=== PATIENT | female | born 1965 | race Two or more races ===

== ENCOUNTER 2023-09-04 12:26 | Inpatient (IN) | payer SELFPAY ==
[2023-09-04] VITALS (10 sets, daily range): BP systolic 116–152; BP diastolic 66–89; TEMP 97–98.6; O2SAT 98–100
[~2023-09-04] VITALS: Ht 165.1 cm; Wt 42.2 kg
[2023-09-04] MEDS: IV LR 1000 ML 1,000 ML BAG IV ONE ×2 (12:59→14:22)
[2023-09-04 13:00] LABS: BASOPHILS # (AUTO) 0.2 K/uL (0.0-0.2); BASOPHILS % (AUTO) 0.7 % (0.0-2.0); HEMATOCRIT 41 % (33-45); HEMOGLOBIN 12.5 g/dL (11.5-14.8); LYMPHOCYTES # (AUTO) 0.9 K/uL (0.8-4.8); LYMPHOCYTES % (AUTO) 3.7 % (20.0-44.0); MEAN CORPUSCULAR HEMOGLOBIN 29 PG (26.0-33.0); MEAN CORPUSCULAR HGB CONC 31 g/dl (31.0-36.0); MEAN CORPUSCULAR VOLUME 95 fL (82-100); MONOCYTES # (AUTO) 1.5 K/uL (0.1-1.30); MONOCYTES % (AUTO) 6.3 % (2.0-12.0); NEUTROPHILS # (AUTO) 20.8 K/uL (1.8-8.9); NEUTROPHILS % (AUTO) 89.3 % (43.0-81.0); PLATELET COUNT (AUTO) 609 K/uL (150-450); RED BLOOD CELL COUNT(AUTO) 4.32 MIL/uL (4.0-5.2); RED CELL DISTRIBUTION WIDTH 14.6 % (11.5-15.0); WHITE BLOOD COUNT (AUTO) 23.3 K/uL (4.3-11.0)
[2023-09-04 13:12] LABS: MAGNESIUM 2.4 mg/dL (1.8-2.4); PHOSPHORUS 4.3 mg/dL (2.5-4.9)
[2023-09-04 13:20] LABS: LACTIC ACID 2.9 mmol/L (0.4-2.0)
[2023-09-04 13:24] LABS: ALANINE AMINOTRANSFERASE 17 U/L (12-78); ALBUMIN 3.3 g/dL (3.4-5.0); ALKALINE PHOSPHATASE 140 U/L (46-116); ASPARTATE AMINOTRANSFERASE 10 U/L (15-37); BILIRUBIN,DIRECT 0.1 mg/dL (0.0-0.2); BILIRUBIN,TOTAL 0.4 mg/dL (0.2-1.0); CALCIUM, SERUM 9.4 mg/dL (8.5-10.1); CREATININE 1.3 mg/dL (0.6-1.3); SALICYLATE 6.9 mg/dL (2.8-20.0); TOTAL PROTEIN, SERUM 8.5 g/dL (6.4-8.2); UREA NITROGEN, BLOOD 20 mg/dL (7-18)
[2023-09-04 13:31] LABS: ACETAMINOPHEN <10 ug/ml (10-30); ALCOHOL, BLOOD < 3 mg/dL (0-10); GLUCOSE 523 mg/dL (74-106)
[2023-09-04 13:32] LABS: CHLORIDE 104 mmol/L (98-107); POTASSIUM 3.3 mmol/L (3.5-5.1); SODIUM SERUM 142 mmol/L (136-145)
[2023-09-04] MEDS: CEFEPIME 1 GM in IV D5W 50 ML IV ONE (13:33)
[2023-09-04 13:37] LABS: CARBON DIOXIDE 4 mmol/L (21-32)
[2023-09-04 13:45] LABS: INR 1.03 (0.91-1.10); PARTIAL THROMBOPLASTIN TIME 31.3 SEC (24.3-34.3); PROTHROMBIN TIME 10.6 SECS (9.2-11.1)
[2023-09-04 14:01] LABS: APPEARANCE,URINE Clear (CLEAR); BILIRUBIN,URINE Negative (NEGATIVE); BLOOD, URINE Small Ery/uL (NEGATIVE); COLOR,URINE YELLOW (YELLOW); KETONES,URINE >=160 mg/dL (NEGATIVE); LEUKOCYTE ESTERASE ,URINE Negative (NEGATIVE); NITRITE, URINE Negative (NEGATIVE); PH,URINE 5.5 (5.0-8.0); PROTEIN,URINE 100 mg/dl (NEGATIVE); UGLUCOSE 500 MG/DL mg/dL (NEGATIVE); UROBILINOGEN,URINE 0.2 EU/dL (0.2)
[2023-09-04 14:16] LABS: AMPHETAMINE, URINE NEGATIVE (NEGATIVE); BARBITURATE, URINE NEGATIVE (NEGATIVE); BENZODIAZEPINE, URINE NEGATIVE (NEGATIVE); CANNABINOID, URINE NEGATIVE (NEGATIVE); COCCAINE, URINE NEGATIVE (NEGATIVE); OPIATE, URINE NEGATIVE (NEGATIVE); PHENCYCLIDINE SCREEN,URINE NEGATIVE (NEGATIVE)
[2023-09-04] MEDS: VANCOMYCIN 1 GM in IV D5W 250 ML IV ONE (14:23)
[2023-09-04] MEDS: IV NS 0.9% 1,000 ML IV PRN (14:46)
[2023-09-04 15:10] LABS: ADD URINE CULTURE NO; BACTERIA,URINE Few /HPF (None Seen); FINE GRANULAR CASTS,URINE Rare /LPF (None Seen); SQUAMOUS EPITHELIAL CELL,UR Few /HPF (None Seen); WBC,URINE 0-2 /HPF (0-3)
[2023-09-04] MEDS: INSULIN REGULAR, HUMAN 100 UNIT in IV NS 0.9% 99 ML IV PRN ×2 (15:10→16:11)
[2023-09-04] MEDS: POTASSIUM CL. PREMIX PERIPHER. 50 ML IV SCH ×2 (15:38→21:31)
[2023-09-04] MEDS: ENOXAPARIN SODIUM 40 MG/0.4 ML DISP.SYRIN SQ SCH (15:51)
[2023-09-04] MEDS: BLOOD SUGAR DIAGNOSTIC 1 EACH STRIP IN ONE (16:13)
[2023-09-04 16:34] LABS: BAND % (MANUAL) 1 % (0.0-5.0); LYMPHOCYTES % (MANUAL) 3 % (16-48); METAMYELOCYTES % 1 % (0-0); MONOCYTES % (MANUAL) 6 % (0-11.0); NEUTROPHILS % (MANUAL) 89 (42-76); PLATELET ESTIMATE INCREASED
[2023-09-04 16:35] LABS: ANISOCYTOSIS 1+
[2023-09-04] MEDS: ONDANSETRON HCL/PF 4 MG/2 ML VIAL IVP PRN (19:20)
[2023-09-04] MEDS: BLOOD SUGAR DIAGNOSTIC 1 EACH STRIP IN SCH (19:20)
[2023-09-04 20:40] LABS: MAGNESIUM 1.9 mg/dL (1.8-2.4)
[2023-09-04 21:07] LABS: POTASSIUM 2.8 mmol/L (3.5-5.1)
[2023-09-04 21:08] LABS: PHOSPHORUS 0.7 mg/dL (2.5-4.9)
[2023-09-04] MEDS: CEFEPIME 1 GM in IV D5W 50 ML IV SCH (21:16)
[2023-09-04] MEDS: K PHOS NEUTRAL 250 MG TABLET PO ONE (21:32)
[2023-09-05] VITALS (21 sets, daily range): BP systolic 115–161; BP diastolic 67–78; TEMP 98–100.5; O2SAT 98–100
[2023-09-05 01:51] LABS: CALCIUM, SERUM 8.8 mg/dL (8.5-10.1); CREATININE 0.9 mg/dL (0.6-1.3); MAGNESIUM 1.9 mg/dL (1.8-2.4)
[2023-09-05 02:51] LABS: POTASSIUM 2.9 mmol/L (3.5-5.1)
[2023-09-05 02:55] LABS: PHOSPHORUS 0.5 mg/dL (2.5-4.9)
[2023-09-05 05:07] LABS: BASOPHILS # (AUTO) 0.2 K/uL (0.0-0.2); HEMATOCRIT 32 % (33-45); HEMOGLOBIN 10.9 g/dL (11.5-14.8); LYMPHOCYTES # (AUTO) 0.9 K/uL (0.8-4.8); LYMPHOCYTES % (AUTO) 4.3 % (20.0-44.0); MEAN CORPUSCULAR HEMOGLOBIN 30 PG (26.0-33.0); MEAN CORPUSCULAR HGB CONC 34 g/dl (31.0-36.0); MEAN CORPUSCULAR VOLUME 88 fL (82-100); MONOCYTES # (AUTO) 1.7 K/uL (0.1-1.30); NEUTROPHILS # (AUTO) 18.6 K/uL (1.8-8.9); NEUTROPHILS % (AUTO) 86.7 % (43.0-81.0); PLATELET COUNT (AUTO) 488 K/uL (150-450); RED BLOOD CELL COUNT(AUTO) 3.65 MIL/uL (4.0-5.2); WHITE BLOOD COUNT (AUTO) 21.4 K/uL (4.3-11.0)
[2023-09-05 05:20] LABS: CALCIUM, SERUM 8.9 mg/dL (8.5-10.1); CREATININE 0.9 mg/dL (0.6-1.3)
[2023-09-05 05:49] LABS: PHOSPHORUS 0.5 mg/dL (2.5-4.9)
[2023-09-05 07:09] LABS: LYMPHOCYTES % (MANUAL) 4 % (16-48); METAMYELOCYTES % 1 % (0-0); MONOCYTES % (MANUAL) 8 % (0-11.0); NEUTROPHILS % (MANUAL) 87 (42-76); PLATELET ESTIMATE ADEQUATE
[2023-09-05 07:10] LABS: ANISOCYTOSIS 1+
[2023-09-05] MEDS: Potassium Chloride 20 MEQ in IV D5/0.45 NACL 1,000 ML IV SCH (08:06)
[2023-09-05] MEDS: POTASSIUM PHOSPHATE MM 5 MMOL in IV NS 0.9% 100 ML IV SCH (08:30)
[2023-09-05] MEDS ORDERED: DEXTROSE 50%-WATER 50 ML DISP.SYRIN IV PRN (09:00)
[2023-09-05] MEDS: PANTOPRAZOLE 40 MG VIAL IV SCH (09:33)
[2023-09-05] MEDS: INSULIN GLARGINE, 100 UNIT/ML CARTRIDGE SQ SCH (10:36)
[2023-09-05] MEDS: INSULIN REGULAR, HUMAN 100 UNIT/ML 3 ML VIAL SQ PRN (10:49)
[2023-09-05] MEDS: BLOOD SUGAR DIAGNOSTIC 1 EACH STRIP IN SCH (12:24)
[2023-09-05] MEDS: VANCOMYCIN 1 GM in IV D5W 250ml IV SCH (14:32)
[2023-09-05 16:06] LABS: CALCIUM, SERUM 8.5 mg/dL (8.5-10.1); CREATININE 0.7 mg/dL (0.6-1.3); MAGNESIUM 1.9 mg/dL (1.8-2.4)
[2023-09-05 16:15] LABS: POTASSIUM 2.4 mmol/L (3.5-5.1)
[2023-09-05 16:30] LABS: APPEARANCE,URINE SLIGHTLY CLOUDY (CLEAR); BILIRUBIN,URINE NEGATIVE (NEGATIVE); BLOOD, URINE 1+ Ery/uL (NEGATIVE); COLOR,URINE YELLOW (YELLOW); KETONES,URINE 2+ mg/dL (NEGATIVE); LEUKOCYTE ESTERASE ,URINE NEGATIVE (NEGATIVE); NITRITE, URINE NEGATIVE (NEGATIVE); PROTEIN,URINE 1+ mg/dl (NEGATIVE); UGLUCOSE 2+ mg/dL (NEGATIVE); UROBILINOGEN,URINE 0.2 EU/dL (0.2)
[2023-09-05 16:45] LABS: ADD URINE CULTURE YES; BACTERIA,URINE 3+ /HPF (None Seen); WBC,URINE NONE SEEN /HPF (0-3)
[2023-09-05 16:46] LABS: COARSE GRANULAR CASTS,URINE Moderate /LPF (None Seen); SQUAMOUS EPITHELIAL CELL,UR Few /HPF (None Seen); YEAST,URINE Moderate /HPF (None Seen)
[2023-09-05] MEDS: ACETAMINOPHEN 650 MG/SUPP.RECT RC PRN (18:11)
[2023-09-05] MEDS: POTASSIUM PHOSPHATE MM 7.5 MMOL in IV NS 0.9% 100 ML IV SCH (19:42)
[2023-09-06 04:00] VITALS: BP 147/90; TEMP 98.8; O2SAT 99
[2023-09-06 06:57] LABS: BASOPHILS # (AUTO) 0.1 K/uL (0.0-0.2); BASOPHILS % (AUTO) 0.7 % (0.0-2.0); HEMATOCRIT 32 % (33-45); HEMOGLOBIN 11.1 g/dL (11.5-14.8); LYMPHOCYTES # (AUTO) 0.7 K/uL (0.8-4.8); LYMPHOCYTES % (AUTO) 4.2 % (20.0-44.0); MEAN CORPUSCULAR HEMOGLOBIN 30 PG (26.0-33.0); MEAN CORPUSCULAR HGB CONC 35 g/dl (31.0-36.0); MEAN CORPUSCULAR VOLUME 85 fL (82-100); MONOCYTES # (AUTO) 1.2 K/uL (0.1-1.30); MONOCYTES % (AUTO) 6.6 % (2.0-12.0); NEUTROPHILS # (AUTO) 15.6 K/uL (1.8-8.9); NEUTROPHILS % (AUTO) 88.5 % (43.0-81.0); PLATELET COUNT (AUTO) 431 K/uL (150-450); RED BLOOD CELL COUNT(AUTO) 3.73 MIL/uL (4.0-5.2); RED CELL DISTRIBUTION WIDTH 13.4 % (11.5-15.0); WHITE BLOOD COUNT (AUTO) 17.7 K/uL (4.3-11.0)
[2023-09-06 07:35] LABS: ALBUMIN 2.1 g/dL (3.4-5.0); BILIRUBIN,TOTAL 0.5 mg/dL (0.2-1.0); CALCIUM, SERUM 7.3 mg/dL (8.5-10.1); CREATININE 0.4 mg/dL (0.6-1.3); MAGNESIUM 1.9 mg/dL (1.8-2.4); PHOSPHORUS 6.9 mg/dL (2.5-4.9); POTASSIUM 3.4 mmol/L (3.5-5.1); TOTAL PROTEIN, SERUM 6.3 g/dL (6.4-8.2)
[2023-09-06] MEDS: PANTOPRAZOLE 40 MG TABLET.DR PO SCH (08:30)
[2023-09-06] MEDS ORDERED: NEPRO VAN 237 ML CAN PO PRN (09:30)
[2023-09-06] MEDS: VANCOMYCIN 750 MG in IV D5W 250 ML IV SCH (10:17)
[2023-09-06 10:40] LABS: LYMPHOCYTES % (MANUAL) 5 % (16-48); MONOCYTES % (MANUAL) 6 % (0-11.0); NEUTROPHILS % (MANUAL) 88 (42-76)
[2023-09-06 10:41] LABS: ANISOCYTOSIS 1+; PLATELET ESTIMATE ADEQUATE; SMUDGE CELLS 1+
[2023-09-06] MEDS: Potassium Chloride 20 MEQ in IV D5/0.45 NACL 1,000 ML IV SCH (13:35)
[2023-09-06 16:00] VITALS: BP 151/85; TEMP 99.3; O2SAT 99
[2023-09-07 04:00] VITALS: BP 143/80; TEMP 99; O2SAT 99
[2023-09-07 08:00] VITALS: BP 152/82; TEMP 98.4; O2SAT 100
[2023-09-07 08:07] LABS: CALCIUM, SERUM 8.1 mg/dL (8.5-10.1); CREATININE 0.4 mg/dL (0.6-1.3)
[2023-09-07 08:26] LABS: POTASSIUM 2.5 mmol/L (3.5-5.1)
[2023-09-07 16:00] VITALS: BP 104/69; TEMP 98.5; O2SAT 98
[2023-09-07 18:00] VITALS: BP 104/69; TEMP 98.5; O2SAT 98
[2023-09-08 04:00] VITALS: BP 146/84; TEMP 98.8; O2SAT 99
[2023-09-08 07:25] LABS: BASOPHILS % (AUTO) 0.1 % (0.0-2.0); HEMATOCRIT 35 % (33-45); HEMOGLOBIN 11.6 g/dL (11.5-14.8); LYMPHOCYTES % (AUTO) 6.9 % (20.0-44.0); MEAN CORPUSCULAR HEMOGLOBIN 29 PG (26.0-33.0); MEAN CORPUSCULAR HGB CONC 34 g/dl (31.0-36.0); MEAN CORPUSCULAR VOLUME 88 fL (82-100); MONOCYTES # (AUTO) 0.8 K/uL (0.1-1.30); MONOCYTES % (AUTO) 5.7 % (2.0-12.0); NEUTROPHILS # (AUTO) 12.8 K/uL (1.8-8.9); NEUTROPHILS % (AUTO) 87.3 % (43.0-81.0); PLATELET COUNT (AUTO) 346 K/uL (150-450); RED BLOOD CELL COUNT(AUTO) 3.94 MIL/uL (4.0-5.2); RED CELL DISTRIBUTION WIDTH 13.5 % (11.5-15.0); WHITE BLOOD COUNT (AUTO) 14.6 K/uL (4.3-11.0)
[2023-09-08 07:41] LABS: CALCIUM, SERUM 8.1 mg/dL (8.5-10.1); CREATININE 0.4 mg/dL (0.6-1.3); MAGNESIUM 2.3 mg/dL (1.8-2.4); PHOSPHORUS 1.8 mg/dL (2.5-4.9)
[2023-09-08 08:00] VITALS: BP_SYST 130; BP_SYST 150; BP_DIAS 84; TEMP 97.7; TEMP 99.9; O2SAT 98
[2023-09-08 08:09] LABS: POTASSIUM 2.7 mmol/L (3.5-5.1)
[2023-09-08] MEDS: GLUCERNA SHAKE 237 ML CAN PO SCH (12:16)
[2023-09-08] MEDS ORDERED: LEVOFLOXACIN 750 MG /D5W 150ML 750 MG in PREMIX 1 EA IV SCH (14:00)
[2023-09-08] MEDS: POTASSIUM CL. PREMIX PERIPHER. 50 ML IV SCH (14:11)
[2023-09-08] MEDS: POTASSIUM CHLORIDE 10 MEQ TABLET.SA PO SCH (14:11)
[2023-09-08] MEDS: LEVOFLOXACIN 250 MG /D5W 50 ML 250 MG in PREMIX 1 EA IV SCH (14:39)
[2023-09-08] MEDS: LEVOFLOXACIN 500 MG /D5W 100ML 500 MG in PREMIX 1 EA IV SCH (15:51)
[2023-09-08] MEDS: K PHOS NEUTRAL 250 MG TABLET PO ONE (15:52)
[2023-09-08 16:00] VITALS: BP 117/76; TEMP 99; O2SAT 98
[2023-09-08 18:00] VITALS: BP 117/76; TEMP 99; O2SAT 99
[2023-09-08 20:00] VITALS: BP 98/68; TEMP 98.8; O2SAT 99
[2023-09-08 20:17] LABS: CALCIUM, SERUM 8.3 mg/dL (8.5-10.1); CREATININE 0.6 mg/dL (0.6-1.3); MAGNESIUM 2.3 mg/dL (1.8-2.4); POTASSIUM 4.2 mmol/L (3.5-5.1)
[2023-09-09] MEDS: IV 1/2NS 1000 ML 1,000 ML IV PRN (03:35)
[2023-09-09 04:00] VITALS: BP 133/79; TEMP 98.2; O2SAT 99
[2023-09-09 06:45] LABS: BASOPHILS % (AUTO) 0.1 % (0.0-2.0); EOSINOPHILS # (AUTO) 0.1 K/uL (0.0-0.7); EOSINOPHILS % (AUTO) 0.4 % (0.0-6.0); HEMATOCRIT 32 % (33-45); HEMOGLOBIN 10.8 g/dL (11.5-14.8); LYMPHOCYTES # (AUTO) 1.1 K/uL (0.8-4.8); MEAN CORPUSCULAR HEMOGLOBIN 30 PG (26.0-33.0); MEAN CORPUSCULAR HGB CONC 33 g/dl (31.0-36.0); MEAN CORPUSCULAR VOLUME 90 fL (82-100); MONOCYTES # (AUTO) 0.8 K/uL (0.1-1.30); MONOCYTES % (AUTO) 6.3 % (2.0-12.0); NEUTROPHILS # (AUTO) 11.1 K/uL (1.8-8.9); NEUTROPHILS % (AUTO) 85.2 % (43.0-81.0); PLATELET COUNT (AUTO) 284 K/uL (150-450); RED BLOOD CELL COUNT(AUTO) 3.62 MIL/uL (4.0-5.2); RED CELL DISTRIBUTION WIDTH 13.6 % (11.5-15.0); WHITE BLOOD COUNT (AUTO) 13.1 K/uL (4.3-11.0)
[2023-09-09 07:08] LABS: CALCIUM, SERUM 8.1 mg/dL (8.5-10.1); CREATININE 0.5 mg/dL (0.6-1.3); MAGNESIUM 2.3 mg/dL (1.8-2.4); PHOSPHORUS 2.2 mg/dL (2.5-4.9); POTASSIUM 3.8 mmol/L (3.5-5.1)
[2023-09-09 08:00] VITALS: BP 139/81; TEMP 97.9; O2SAT 99
[2023-09-09 16:00] VITALS: BP 125/70; TEMP 97.3; O2SAT 100
[2023-09-09] MEDS: K PHOS NEUTRAL 250 MG TABLET PO ONE (16:20)
[2023-09-09 20:00] VITALS: BP 115/69; TEMP 97.3; O2SAT 100
[2023-09-09] MEDS: INSULIN GLARGINE, 100 UNIT/ML CARTRIDGE SQ SCH (22:16)
[2023-09-10 04:00] VITALS: BP 138/79; TEMP 98.3; O2SAT 100
[2023-09-10 06:53] LABS: BASOPHILS % (AUTO) 0.1 % (0.0-2.0); EOSINOPHILS # (AUTO) 0.1 K/uL (0.0-0.7); EOSINOPHILS % (AUTO) 1.1 % (0.0-6.0); HEMATOCRIT 34 % (33-45); HEMOGLOBIN 11.6 g/dL (11.5-14.8); LYMPHOCYTES % (AUTO) 11.8 % (20.0-44.0); MEAN CORPUSCULAR HEMOGLOBIN 30 PG (26.0-33.0); MEAN CORPUSCULAR HGB CONC 34 g/dl (31.0-36.0); MEAN CORPUSCULAR VOLUME 88 fL (82-100); MONOCYTES # (AUTO) 0.6 K/uL (0.1-1.30); MONOCYTES % (AUTO) 7.3 % (2.0-12.0); NEUTROPHILS % (AUTO) 79.7 % (43.0-81.0); PLATELET COUNT (AUTO) 293 K/uL (150-450); RED BLOOD CELL COUNT(AUTO) 3.83 MIL/uL (4.0-5.2); RED CELL DISTRIBUTION WIDTH 13.2 % (11.5-15.0); WHITE BLOOD COUNT (AUTO) 8.8 K/uL (4.3-11.0)
[2023-09-10 07:42] LABS: CALCIUM, SERUM 8.1 mg/dL (8.5-10.1); CREATININE 0.5 mg/dL (0.6-1.3); MAGNESIUM 2.1 mg/dL (1.8-2.4); PHOSPHORUS 2.9 mg/dL (2.5-4.9); POTASSIUM 3.2 mmol/L (3.5-5.1)
[2023-09-10] MEDS: POTASSIUM CHLORIDE 20 MEQ TAB.PRT.SR PO SCH (11:34)
[2023-09-10 14:15] VITALS: BP 127/86; TEMP 98.4; O2SAT 99
[2023-09-10] MEDS: LEVOFLOXACIN (250MG) 250 MG TABLET PO SCH (15:33)
[2023-09-10] MEDS ORDERED: LEVO750T46 PO (16:36)
[2023-09-10] MEDS ORDERED: INSU100V28 SQ (16:36)
[2023-09-10] MEDS ORDERED: INSU100V7 SQ (16:36)
== END 2023-09-10 18:27 | disposition home or self-care (01) | DRG 638 ==
LOC: ER 12:57 → ICU 14:26 → MEDSG1 09-05 18:58
PROVIDERS: ATTEND Nurse Practitioner Family
PROC: 05HB33Z Insertion of Infusion Device into Right Basilic Vein, Percutaneous Approach (ICD-10-PCS; principal; 2023-09-04)
DX: E11.10 Type 2 diabetes mellitus with ketoacidosis without coma (principal); E44.1 Mild protein-calorie malnutrition; E87.0 Hyperosmolality and hypernatremia; R64 Cachexia; R78.81 Bacteremia; E87.6 Hypokalemia; B96.1 Klebsiella pneumoniae [K. pneumoniae] as the cause of diseases classified elsewhere; R62.7 Adult failure to thrive; Z20.822 Contact with and (suspected) exposure to COVID-19; Z91.199 Patient's noncompliance with other medical treatment and regimen due to unspecified reason; Z91.148 Patient's other noncompliance with medication regimen for other reason; F32.A Depression, unspecified
CPT/HCPCS: 36410; 36415; 36600; 71045-TC; 80048-TC; 80053-TC; 80076-TC; 80202-TC; 81001; 82803-TC; 82962-TC; 83605-TC; 83735-TC; 84100-TC; 84443-TC; 85025-TC; 85730-TC; 87040-TC; 87081-TC; 87086-TC; 87186-TC; 97110-TC; 97112-TC; 97116-TC; 97530-TC; A4216; A4223; G0378; G0480; J0692; J1650; J1815; J1956; J2405; J2470; J3370; J3371; J3480; J3490; J7030; J7042; J7050; J7060; J7120